=== PATIENT | male | born 1975 | race Two or more races ===

== ENCOUNTER 2017-04-16 21:10 | Emergency (ER) | payer OTHER ==
[~2017-04-16 21:10] MED LIST: FLEXERIL10 MG PO; NAPROSYN500 MG PO; NEURONTIN100 MG PO; NO MEDICATIONS; PERCOCET 10/31 UDTA1 PO; ROBAXIN 750750 M1 PO; TYLENOL #3 PO; ULTRAM PO; VOLTAREN75 MG PO
[2017-04-16] MEDS ORDERED: [UNRECOGNIZED DRUG - MIXTURE] (21:19)
[2017-04-16] MEDS ORDERED: LOTRISONE CREAM15 GM TOP (21:40)
== END 2017-04-16 21:42 | disposition home or self-care (01) ==
LOC: SED 21:10
DX: R21 Rash and other nonspecific skin eruption (principal)
CPT/HCPCS: 99282

== ENCOUNTER 2017-07-31 19:23 | Emergency (ER) | payer OTHER ==
[~2017-07-31] VITALS: Ht 180.3 cm; Wt 97.5 kg
[~2017-07-31 19:23] MED LIST changes: +LOTRISONE CREAM15 GM TOP; +[UNRECOGNIZED DRUG - MIXTURE]
== END 2017-07-31 21:31 | disposition home or self-care (01) ==
LOC: SED 19:23
DX: J20.9 Acute bronchitis, unspecified (principal); J06.9 Acute upper respiratory infection, unspecified; F17.210 Nicotine dependence, cigarettes, uncomplicated
CPT/HCPCS: 87651; 99283